=== PATIENT | female | born 1990 | race Two or more races ===

== ENCOUNTER 2016-11-29 20:16 | Emergency (ER) | payer BC ==
[~2016-11-29] VITALS: Ht 162.6 cm; Wt 47.2 kg
[~2016-11-29 20:16] MED LIST: IBUPROFEN600 MG ORAL; PENICILLIN V P500 MG PO
[2016-11-29 20:45] VITALS: BP 111/68
[2016-11-29] MEDS ORDERED: NKM (20:45)
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
[2016-11-29] MEDS ORDERED: Lidocaine HCl 2% Jelly 5ml Tube TOPIC ONE (21:30)
[2016-11-29] MEDS ORDERED: Tetanus/Diptheria/Pertussis Vaccine 0.5ml Syr IM ONE (21:30)
[2016-11-29] MEDS ORDERED: Bacitracin Oint UD TOPIC ONE (21:30)
[2016-11-29] MEDS ORDERED: IBUPROFEN600 MG ORAL (21:50)
[2016-11-29] MEDS ORDERED: CYCLOBENZAPRINE10 MG ORAL (21:50)
[2016-11-29 22:03] VITALS: BP 111/68
--- NOTE | 2016-11-30 11:04 | Diagnostic Imaging Report ---
Indication: PAIN Technique: 3 views right hand Comparison: none Findings: No acute fractures. No dislocations. The joint spaces are preserved Impression: Negative
== END 2016-11-29 22:03 | disposition home or self-care (01) ==
LOC: EMR 21:40
DX: M54.2 Cervicalgia (principal); M79.601 Pain in right arm; S61.401A Unspecified open wound of right hand, initial encounter; V43.52XA Car driver injured in collision with other type car in traffic accident, initial encounter; Y93.9 Activity, unspecified; Y92.410 Unspecified street and highway as the place of occurrence of the external cause; Z23 Encounter for immunization
CPT/HCPCS: 90471; 90715; 99284